=== PATIENT | female | born 1950 | race Caucasian/White ===

== ENCOUNTER 2017-08-21 15:49 | Inpatient (IN) | payer MEDICARE, MEDICAID ==
[~2017-08-21] VITALS: Ht 160 cm; Wt 48.6 kg
[~2017-08-21 15:49] MED LIST: FLUO-191 PO; OMEP40CA PO; XALA2.5OS OU; ZIPR60CA2 PO
[2017-08-21 16:29] LABS: BASOPHILS # (AUTO) 0.01 K/uL (0.00-0.20); BASOPHILS % (AUTO) 0.2 % (0.0-2.0); EOSINOPHILS % (AUTO) 0 % (1.0-6.0); HEMATOCRIT 35.3 % (36-46); HEMOGLOBIN 12.1 g/dL (12.0-16.0); LYMPHOCYTES # (AUTO) 0.8 K/uL (1.0-4.8); LYMPHOCYTES % (AUTO) 14.5 % (22.0-44.0); MEAN CORPUSCULAR HEMOGLOBIN 32.1 pg (26.0-34.0); MEAN CORPUSCULAR HGB CONC 34.3 G/dL (31.0-37.0); MEAN CORPUSCULAR VOLUME 94 fL (80-100); MONOCYTES # (AUTO) 0.3 K/uL (0.1-1.0); MONOCYTES % (AUTO) 6.3 % (2.0-9.0); NEUTROPHILS # (AUTO) 4.3 K/uL (1.8-7.7); PLATELET COUNT (AUTO) 178 K/uL (150-450); RED BLOOD CELL COUNT(AUTO) 3.77 MIL/uL (4.00-5.20); RED CELL DISTRIBUTION WIDTH 13.6 % (11.5-14.5); WHITE BLOOD COUNT (AUTO) 5.5 K/uL (4.5-11.0)
[2017-08-21 16:46] LABS: ANION GAP 11 mmol/L (8-16); CALCIUM, TOTAL 8.9 mg/dL (8.8-10.5); CARBON DIOXIDE 24 mmol/L (22-29); CHLORIDE 100 mmol/L (98-107); CREATININE 0.54 mg/dL (0.60-1.30); GLOMERULAR FILTR. RATE CALC > 60 mL/min (>60); POTASSIUM 4.1 mmol/L (3.5-5.1); SODIUM SERUM 135 mmol/L (136-145); UREA NITROGEN, BLOOD 19 mg/dL (7-18)
[2017-08-21 16:48] LABS: ALANINE AMINOTRANSFERASE 21 U/L (12-78); ALBUMIN 4.2 g/dL (3.4-5.0); ASPARTATE AMINOTRANSFERASE 25 U/L (15-37); BILIRUBIN,TOTAL 0.3 mg/dL (0.1-1.0); TOTAL PROTEIN, SERUM 7.6 g/dL (6.4-8.2)
[2017-08-21] MEDS ORDERED: HALOPERIDOL 5 MG TABLET PO PRN (17:15)
[2017-08-21 19:00] VITALS: BP 126/80
[2017-08-21] MEDS ORDERED: INFLUENZA VIRUS VACCINE QVS 2017-18 (3YR+)/PF 60 MCG/0.5 ML SYRINGE IM ONE (20:45)
[2017-08-21] MEDS: LORazepam 2 MG TABLET PO PRN (21:48)
[2017-08-22 07:00] VITALS: BP 140/71
[2017-08-22] MEDS ORDERED: ACETAMINOPHEN 325 MG TABLET PO PRN (08:45)
[2017-08-22] MEDS ORDERED: PETROLATUM,WHITE 71 GM JELLY TP PRN (08:45)
[2017-08-22] MEDS ORDERED: CloNIDine HCL 0.1 MG TABLET PO PRN (08:45)
[2017-08-22] MEDS ORDERED: MAGNESIUM HYDROXIDE SUSPENSION 30 ML UDCUP PO PRN (08:45)
[2017-08-22] MEDS ORDERED: LOPERAMIDE HCL 2 MG CAPSULE PO PRN (08:45)
[2017-08-22] MEDS ORDERED: ALBUTEROL SULFATE HFA 90 MCG/PUFF 8 GM INHALER IH PRN (08:45)
[2017-08-22] MEDS ORDERED: BENZOCAINE/MENTHOL LOZENGE MM PRN (08:45)
[2017-08-22] MEDS ORDERED: MAG HYDROX/AL HYDROX/SIMETH ES 30 ML SUSPENSION UDCUP PO PRN (08:45)
[2017-08-22] MEDS ORDERED: IBUPROFEN 600 MG TABLET PO PRN (08:45)
[2017-08-22] MEDS ORDERED: ONDANSETRON HCL 4 MG TABLET PO PRN (08:45)
[2017-08-22] MEDS ORDERED: BACITRACIN 28.4 GM OINTMENT TP PRN (08:45)
[2017-08-22 08:48] VITALS: BP 100/60
[2017-08-22 09:55] LABS: CHOL/HDL RATIO 2.1 (3.9-5.7)
[2017-08-22 16:25] VITALS: BP 118/74
[2017-08-23 00:49] VITALS: BP 116/77
[2017-08-23] MEDS: LEVOTHYROXINE SODIUM 25 MCG TABLET PO SCH (06:45)
[2017-08-23 08:00] VITALS: BP 122/76
[2017-08-23] MEDS: FLUoxetine HCL 20 MG CAPSULE PO SCH (08:09)
[2017-08-23] MEDS: ARIPiprazole 5 MG TABLET PO SCH (08:09)
[2017-08-23 16:06] VITALS: BP 140/86
[2017-08-23] MEDS: LORazepam 2 MG TABLET PO PRN (16:17)
[2017-08-23 17:17] VITALS: BP 135/84
[2017-08-24 00:07] VITALS: BP 112/78
[2017-08-24] MEDS: LEVOTHYROXINE SODIUM 25 MCG TABLET PO SCH (06:18)
[2017-08-24] MEDS: FLUoxetine HCL 20 MG CAPSULE PO SCH (08:44)
[2017-08-24] MEDS: ARIPiprazole 5 MG TABLET PO SCH (08:44)
[2017-08-24 09:03] VITALS: BP 104/77
[2017-08-24 16:20] VITALS: BP 119/65
[2017-08-25] MEDS: LEVOTHYROXINE SODIUM 25 MCG TABLET PO SCH (06:42)
[2017-08-25 06:46] VITALS: BP 142/72
[2017-08-25] MEDS: ARIPiprazole 5 MG TABLET PO SCH (08:33)
[2017-08-25] MEDS: FLUoxetine HCL 20 MG CAPSULE PO SCH (08:33)
[2017-08-25 08:39] VITALS: BP 103/63
[2017-08-25 16:20] VITALS: BP 117/71
[2017-08-25] MEDS: ZOLPIDEM TARTRATE 10 MG TABLET PO PRN (21:16)
[2017-08-26 01:51] VITALS: BP 117/64
[2017-08-26] MEDS: LEVOTHYROXINE SODIUM 25 MCG TABLET PO SCH (06:33)
[2017-08-26] MEDS: ARIPiprazole 5 MG TABLET PO SCH (08:14)
[2017-08-26] MEDS: FLUoxetine HCL 20 MG CAPSULE PO SCH (08:14)
[2017-08-26 09:12] VITALS: BP 113/51
[2017-08-26 14:00] VITALS: BP 138/75
[2017-08-26 16:05] VITALS: BP 129/83
[2017-08-26] MEDS: ZOLPIDEM TARTRATE 10 MG TABLET PO PRN (21:07)
[2017-08-27 02:55] VITALS: BP 130/80
[2017-08-27] MEDS: LEVOTHYROXINE SODIUM 25 MCG TABLET PO SCH (06:36)
[2017-08-27 08:39] VITALS: BP 116/67
[2017-08-27] MEDS: FLUoxetine HCL 20 MG CAPSULE PO SCH (08:41)
[2017-08-27] MEDS: ARIPiprazole 5 MG TABLET PO SCH (08:41)
[2017-08-27 16:07] VITALS: BP 117/71
[2017-08-27] MEDS: ZOLPIDEM TARTRATE 10 MG TABLET PO PRN (21:00)
[2017-08-28 00:59] VITALS: BP 120/67
[2017-08-28] MEDS: LEVOTHYROXINE SODIUM 25 MCG TABLET PO SCH (06:33)
[2017-08-28] MEDS: FLUoxetine HCL 20 MG CAPSULE PO SCH (08:06)
[2017-08-28] MEDS: ARIPiprazole 5 MG TABLET PO SCH (08:06)
[2017-08-28 08:38] VITALS: BP 107/66
[2017-08-28] MEDS ORDERED: ALBU8HFA IH (11:46)
[2017-08-28] MEDS ORDERED: ARIP5TAB8 PO (11:46)
[2017-08-28] MEDS ORDERED: LEVO25TA9 PO (11:46)
== END 2017-08-28 13:20 | disposition home or self-care (01) | DRG 881 ==
LOC: EMS 15:51 → B2X 17:08
PROVIDERS: ADMIT Psychiatry & Neurology Child & Adolescent Psychiatry; ATTEND Psychiatry & Neurology Child & Adolescent Psychiatry
DX: F32.9 Major depressive disorder, single episode, unspecified (principal); E44.1 Mild protein-calorie malnutrition; F25.0 Schizoaffective disorder, bipolar type; I10 Essential (primary) hypertension; E03.9 Hypothyroidism, unspecified; K21.9 Gastro-esophageal reflux disease without esophagitis; K59.00 Constipation, unspecified; M19.90 Unspecified osteoarthritis, unspecified site
CPT/HCPCS: 99285; G0480; J3535

== ENCOUNTER 2018-01-01 20:07 | Emergency (ER) | payer MEDICARE, OTHER ==
[~2018-01-01] VITALS: Ht 160 cm; Wt 48.0 kg
[~2018-01-01 20:07] MED LIST changes: +ALBU8HFA IH; +ARIP5TAB8 PO; +LEVO25TA9 PO; -OMEP40CA PO; -XALA2.5OS OU; -ZIPR60CA2 PO
[2018-01-01] MEDS ORDERED: ZIPR60CA2 PO (20:17)
[2018-01-01] MEDS ORDERED: PARO10TA89 PO (20:17)
[2018-01-01 21:30] LABS: BASOPHILS % (AUTO) 0.1 % (0.0-2.0); EOSINOPHILS % (AUTO) 0 % (1.0-6.0); HEMATOCRIT 34.8 % (36-46); HEMOGLOBIN 11.8 g/dL (12.0-16.0); LYMPHOCYTES # (AUTO) 1.1 K/uL (1.0-4.8); LYMPHOCYTES % (AUTO) 23.2 % (22.0-44.0); MEAN CORPUSCULAR HEMOGLOBIN 31.7 pg (26.0-34.0); MEAN CORPUSCULAR HGB CONC 33.8 G/dL (31.0-37.0); MEAN CORPUSCULAR VOLUME 94 fL (80-100); MONOCYTES # (AUTO) 0.5 K/uL (0.1-1.0); MONOCYTES % (AUTO) 10.1 % (2.0-9.0); NEUTROPHILS # (AUTO) 3.3 K/uL (1.8-7.7); NEUTROPHILS % (AUTO) 66.6 % (40.0-70.0); PLATELET COUNT (AUTO) 202 K/uL (150-450); RED BLOOD CELL COUNT(AUTO) 3.71 MIL/uL (4.00-5.20); RED CELL DISTRIBUTION WIDTH 13.4 % (11.5-14.5)
[2018-01-01 21:41] LABS: ANION GAP 7 mmol/L (8-16); CALCIUM, TOTAL 8.6 mg/dL (8.8-10.5); CARBON DIOXIDE 31 mmol/L (22-29); CHLORIDE 101 mmol/L (98-107); CREATININE 0.66 mg/dL (0.60-1.30); GLOMERULAR FILTR. RATE CALC > 60 mL/min (>60); GLUCOSE,RANDOM 76 mg/dL (70-110); POTASSIUM 4.1 mmol/L (3.5-5.1); SODIUM SERUM 139 mmol/L (136-145); UREA NITROGEN, BLOOD 22 mg/dL (7-18)
[2018-01-01 21:48] LABS: ALANINE AMINOTRANSFERASE 29 U/L (12-78); ALBUMIN 3.8 g/dL (3.4-5.0); ALKALINE PHOSPHATASE 86 U/L (46-116); ASPARTATE AMINOTRANSFERASE 27 U/L (15-37); BILIRUBIN,TOTAL 0.2 mg/dL (0.1-1.0); TOTAL PROTEIN, SERUM 7.1 g/dL (6.4-8.2)
[2018-01-01 22:40] VITALS: BP 136/71
[2018-01-01] MEDS: LORazepam 1 MG TABLET PO ONE ×2 (23:15→23:24)
== END 2018-01-01 23:35 | disposition home or self-care (01) ==
LOC: EMS 20:09
DX: F20.9 Schizophrenia, unspecified (principal); F32.9 Major depressive disorder, single episode, unspecified; E05.90 Thyrotoxicosis, unspecified without thyrotoxic crisis or storm
CPT/HCPCS: 36415; 80053; 85025; 99284; G0480

== ENCOUNTER 2018-11-24 20:19 | Inpatient (IN) | payer MEDICARE, MEDICAID ==
[~2018-11-24] VITALS: Ht 152.4 cm; Wt 54.0 kg
[~2018-11-24 20:19] MED LIST changes: -FLUO-191 PO; +PARO10TA89 PO; +ZIPR60CA2 PO
[2018-11-24 21:18] LABS: AMPHET/METH SCREEN,URINE NEGATIVE (NEGATIVE); BARBITURATE SCREEN, URINE NEGATIVE (NEGATIVE); BENZODIAZEPINES SCREEN,URINE NEGATIVE (NEGATIVE); CANNABINOID SCREEN,URINE NEGATIVE (NEGATIVE); COCAINE SCREEN,URINE NEGATIVE (NEGATIVE); METHADONE SCREEN, URINE NEGATIVE (NEGATIVE); OPIATE SCREEN,URINE NEGATIVE (NEGATIVE)
[2018-11-24 21:26] LABS: PHENCYCLIDINE SCREEN,URINE NEGATIVE (NEGATIVE)
[2018-11-24 21:29] LABS: BASOPHILS % (AUTO) 0.3 % (0.0-2.0); EOSINOPHILS % (AUTO) 0 % (1.0-6.0); HEMATOCRIT 33.4 % (36-46); HEMOGLOBIN 11.7 g/dL (12.0-16.0); LYMPHOCYTES # (AUTO) 1.2 K/uL (1.0-4.8); LYMPHOCYTES % (AUTO) 28.7 % (22.0-44.0); MEAN CORPUSCULAR HEMOGLOBIN 32.8 pg (26.0-34.0); MEAN CORPUSCULAR HGB CONC 35.1 G/dL (31.0-37.0); MEAN CORPUSCULAR VOLUME 94 fL (80-100); MONOCYTES # (AUTO) 0.5 K/uL (0.1-1.0); MONOCYTES % (AUTO) 11.3 % (2.0-9.0); NEUTROPHILS # (AUTO) 2.4 K/uL (1.8-7.7); NEUTROPHILS % (AUTO) 59.7 % (40.0-70.0); PLATELET COUNT (AUTO) 189 K/uL (150-450); RED BLOOD CELL COUNT(AUTO) 3.57 MIL/uL (4.00-5.20); RED CELL DISTRIBUTION WIDTH 13.3 % (11.5-14.5)
[2018-11-24 21:36] LABS: ANION GAP 9 mmol/L (8-16); CALCIUM, TOTAL 8.6 mg/dL (8.8-10.5); CARBON DIOXIDE 28 mmol/L (22-29); CHLORIDE 99 mmol/L (98-107); GLOMERULAR FILTR. RATE CALC > 60 mL/min (>60); GLUCOSE,RANDOM 94 mg/dL (70-110); POTASSIUM 3.7 mmol/L (3.5-5.1); SODIUM SERUM 136 mmol/L (136-145); UREA NITROGEN, BLOOD 11 mg/dL (7-18)
[2018-11-24 21:41] LABS: ALANINE AMINOTRANSFERASE 19 U/L (12-78); ALBUMIN 3.3 g/dL (3.4-5.0); ALKALINE PHOSPHATASE 59 U/L (46-116); ASPARTATE AMINOTRANSFERASE 19 U/L (15-37); BILIRUBIN,TOTAL 0.2 mg/dL (0.1-1.0); TOTAL PROTEIN, SERUM 6.5 g/dL (6.4-8.2)
[2018-11-24] MEDS ORDERED: ZOLPIDEM TARTRATE 5 MG TABLET PO PRN (22:00)
[2018-11-25 00:25] VITALS: BP 117/63
[2018-11-25] MEDS: HALOPERIDOL 5 MG TABLET PO PRN (03:53)
[2018-11-25] MEDS ORDERED: MAGNESIUM HYDROXIDE SUSPENSION 30 ML UDCUP PO PRN (07:15)
[2018-11-25] MEDS ORDERED: ALBUTEROL SULFATE HFA 90 MCG/PUFF 8 GM INHALER IH PRN (07:15)
[2018-11-25] MEDS ORDERED: ONDANSETRON HCL 4 MG TABLET PO PRN (07:15)
[2018-11-25] MEDS ORDERED: MAG HYDROX/AL HYDROX/SIMETH ES 30 ML SUSPENSION UDCUP PO PRN (07:15)
[2018-11-25] MEDS ORDERED: LOPERAMIDE HCL 2 MG CAPSULE PO PRN (07:15)
[2018-11-25] MEDS ORDERED: GuaiFENesin/D-METHORPHAN [SUGAR-FREE] 200-20MG/10 ML SYRUP UDCUP PO PRN (07:15)
[2018-11-25] MEDS ORDERED: DOCUSATE SODIUM 100 MG CAPSULE PO PRN (07:15)
[2018-11-25] MEDS ORDERED: CloNIDine HCL 0.1 MG TABLET PO PRN (07:15)
[2018-11-25] MEDS ORDERED: PETROLATUM,WHITE 71 GM JELLY TP PRN (07:15)
[2018-11-25 09:28] VITALS: BP 107/71
[2018-11-25] MEDS ORDERED: DENTURE ADHESIVE 68 GM CREAM DT PRN (13:30)
[2018-11-25 16:15] VITALS: BP 103/78
[2018-11-25] MEDS: ZIPRASIDONE HCL 60 MG CAPSULE PO SCH (17:31)
[2018-11-25] MEDS: LORazepam 1 MG TABLET PO PRN (20:25)
[2018-11-26 02:15] VITALS: BP 104/61
[2018-11-26 06:17] LABS: HEMOGLOBIN A1C 5.4 % (4.5-6.2)
[2018-11-26 06:40] LABS: CHOL/HDL RATIO 2.2 (3.9-5.7); THYROID STIMULATING HORMONE 4.65 uIU/mL (0.36-3.74)
[2018-11-26] MEDS: LEVOTHYROXINE SODIUM 25 MCG TABLET PO SCH (06:41)
[2018-11-26] MEDS: ZIPRASIDONE HCL 60 MG CAPSULE PO SCH (06:41)
[2018-11-26] MEDS: PARoxetine HCL 10 MG TABLET PO SCH (07:57)
[2018-11-26 08:57] VITALS: BP 98/65
[2018-11-26] MEDS: IBUPROFEN 400 MG TABLET PO PRN (10:01)
[2018-11-26 16:42] VITALS: BP 119/52
[2018-11-26] MEDS ORDERED: ZIPRASIDONE HCL 80 MG CAPSULE PO SCH (17:30)
[2018-11-26] MEDS: ZIPRASIDONE HCL 80 MG CAPSULE PO SCH (17:47)
[2018-11-26 18:53] VITALS: BP 123/60
[2018-11-26] MEDS: ACETAMINOPHEN 325 MG TABLET PO PRN (18:53)
[2018-11-27 01:47] VITALS: BP 99/63
[2018-11-27] MEDS: ZIPRASIDONE HCL 80 MG CAPSULE PO SCH ×2 (06:51→16:48)
[2018-11-27] MEDS: LEVOTHYROXINE SODIUM 25 MCG TABLET PO SCH (06:51)
[2018-11-27 08:05] VITALS: BP 132/86
[2018-11-27] MEDS: PARoxetine HCL 10 MG TABLET PO SCH (08:24)
[2018-11-27 16:00] VITALS: BP 129/61
[2018-11-28 06:02] LABS: BASOPHILS % (AUTO) 0.2 % (0.0-2.0); EOSINOPHILS % (AUTO) 0 % (1.0-6.0); HEMATOCRIT 34.9 % (36-46); LYMPHOCYTES # (AUTO) 0.8 K/uL (1.0-4.8); LYMPHOCYTES % (AUTO) 18.4 % (22.0-44.0); MEAN CORPUSCULAR HEMOGLOBIN 32.7 pg (26.0-34.0); MEAN CORPUSCULAR HGB CONC 34.4 G/dL (31.0-37.0); MEAN CORPUSCULAR VOLUME 95 fL (80-100); MONOCYTES # (AUTO) 0.6 K/uL (0.1-1.0); MONOCYTES % (AUTO) 13.2 % (2.0-9.0); NEUTROPHILS # (AUTO) 3.1 K/uL (1.8-7.7); NEUTROPHILS % (AUTO) 68.2 % (40.0-70.0); PLATELET COUNT (AUTO) 170 K/uL (150-450); RED BLOOD CELL COUNT(AUTO) 3.67 MIL/uL (4.00-5.20); RED CELL DISTRIBUTION WIDTH 13.6 % (11.5-14.5)
[2018-11-28] MEDS: ZIPRASIDONE HCL 80 MG CAPSULE PO SCH ×2 (07:03→16:21)
[2018-11-28] MEDS: LEVOTHYROXINE SODIUM 25 MCG TABLET PO SCH (07:03)
[2018-11-28 08:05] VITALS: BP 127/68
[2018-11-28] MEDS: PARoxetine HCL 10 MG TABLET PO SCH (11:03)
[2018-11-28 12:24] VITALS: BP 124/70
[2018-11-28] MEDS: ACETAMINOPHEN 325 MG TABLET PO PRN (12:24)
[2018-11-28 13:24] VITALS: BP 126/72
[2018-11-28 17:22] VITALS: BP 101/66
[2018-11-29 01:49] VITALS: BP 148/70
[2018-11-29] MEDS: ZIPRASIDONE HCL 80 MG CAPSULE PO SCH ×3 (07:09→18:00)
[2018-11-29] MEDS: LEVOTHYROXINE SODIUM 25 MCG TABLET PO SCH (07:09)
[2018-11-29] MEDS: PARoxetine HCL 10 MG TABLET PO SCH (08:50)
[2018-11-29 08:59] VITALS: BP 94/58
[2018-11-29 16:53] VITALS: BP 95/58
[2018-11-30] MEDS: LEVOTHYROXINE SODIUM 25 MCG TABLET PO SCH (07:00)
[2018-11-30] MEDS: PARoxetine HCL 10 MG TABLET PO SCH (08:03)
[2018-11-30 09:08] VITALS: BP 135/71
[2018-11-30] MEDS: ZIPRASIDONE HCL 80 MG CAPSULE PO SCH (17:00)
[2018-12-01] MEDS: LORazepam 1 MG TABLET PO PRN ×2 (00:14→08:20)
[2018-12-01] MEDS: HALOPERIDOL 5 MG TABLET PO PRN (00:14)
[2018-12-01] MEDS: ZIPRASIDONE HCL 80 MG CAPSULE PO SCH ×2 (06:59→16:42)
[2018-12-01] MEDS: LEVOTHYROXINE SODIUM 25 MCG TABLET PO SCH (07:00)
[2018-12-01 08:05] VITALS: BP 110/74
[2018-12-01] MEDS: PARoxetine HCL 10 MG TABLET PO SCH (08:20)
[2018-12-01 19:14] VITALS: BP 99/59
[2018-12-02 01:43] VITALS: BP 104/68
[2018-12-02] MEDS: LEVOTHYROXINE SODIUM 25 MCG TABLET PO SCH (07:24)
[2018-12-02] MEDS: ZIPRASIDONE HCL 80 MG CAPSULE PO SCH ×2 (07:24→16:11)
[2018-12-02 08:05] VITALS: BP 140/71
[2018-12-02] MEDS: PARoxetine HCL 10 MG TABLET PO SCH (09:15)
[2018-12-02] MEDS: HALOPERIDOL 5 MG TABLET PO PRN (16:12)
[2018-12-02] MEDS: LORazepam 1 MG TABLET PO PRN (16:26)
[2018-12-02 18:24] VITALS: BP 123/70
[2018-12-03 01:02] VITALS: BP 113/68
[2018-12-03] MEDS: ZIPRASIDONE HCL 80 MG CAPSULE PO SCH ×2 (07:02→16:29)
[2018-12-03] MEDS: LEVOTHYROXINE SODIUM 25 MCG TABLET PO SCH (07:02)
[2018-12-03 08:05] VITALS: BP 141/69
[2018-12-03] MEDS: PARoxetine HCL 10 MG TABLET PO SCH (08:07)
[2018-12-03 16:36] VITALS: BP 115/71
[2018-12-03] MEDS: LORazepam 1 MG TABLET PO PRN (21:55)
[2018-12-04 04:04] VITALS: BP 141/97
[2018-12-04] MEDS: IBUPROFEN 400 MG TABLET PO PRN (04:06)
[2018-12-04] MEDS: LEVOTHYROXINE SODIUM 25 MCG TABLET PO SCH (06:57)
[2018-12-04] MEDS: ZIPRASIDONE HCL 80 MG CAPSULE PO SCH ×2 (06:57→17:52)
[2018-12-04] MEDS: PARoxetine HCL 10 MG TABLET PO SCH (08:05)
[2018-12-04 09:04] VITALS: BP 121/76
[2018-12-04] MEDS: ACETAMINOPHEN 325 MG TABLET PO PRN (09:51)
[2018-12-04 09:52] VITALS: BP 106/67
[2018-12-04 16:48] VITALS: BP 131/81
[2018-12-05 03:11] VITALS: BP 149/78
[2018-12-05] MEDS: ACETAMINOPHEN 325 MG TABLET PO PRN (03:13)
[2018-12-05] MEDS: LEVOTHYROXINE SODIUM 25 MCG TABLET PO SCH (06:48)
[2018-12-05] MEDS: ZIPRASIDONE HCL 80 MG CAPSULE PO SCH ×2 (06:48→17:47)
[2018-12-05] MEDS: PARoxetine HCL 10 MG TABLET PO SCH (08:53)
[2018-12-05 10:22] VITALS: BP 121/62
[2018-12-05 16:17] VITALS: BP 103/62
[2018-12-06 00:58] VITALS: BP 146/98
[2018-12-06 06:15] LABS: HEMATOCRIT 34.5 % (36-46); HEMOGLOBIN 11.7 g/dL (12.0-16.0); MEAN CORPUSCULAR HEMOGLOBIN 31.9 pg (26.0-34.0); MEAN CORPUSCULAR VOLUME 94 fL (80-100); PLATELET COUNT (AUTO) 239 K/uL (150-450); RED BLOOD CELL COUNT(AUTO) 3.68 MIL/uL (4.00-5.20); RED CELL DISTRIBUTION WIDTH 13.7 % (11.5-14.5)
[2018-12-06 06:39] LABS: ALANINE AMINOTRANSFERASE 22 U/L (12-78); ALBUMIN 3.6 g/dL (3.4-5.0); ALKALINE PHOSPHATASE 69 U/L (46-116); ANION GAP 4 mmol/L (8-16); ASPARTATE AMINOTRANSFERASE 23 U/L (15-37); BILIRUBIN,TOTAL 0.2 mg/dL (0.1-1.0); CALCIUM, TOTAL 8.6 mg/dL (8.8-10.5); CARBON DIOXIDE 31 mmol/L (22-29); CHLORIDE 101 mmol/L (98-107); CREATININE 0.39 mg/dL (0.60-1.30); GLOMERULAR FILTR. RATE CALC > 60 mL/min (>60); GLUCOSE,RANDOM 82 mg/dL (70-110); POTASSIUM 4.9 mmol/L (3.5-5.1); SODIUM SERUM 136 mmol/L (136-145); TOTAL PROTEIN, SERUM 6.7 g/dL (6.4-8.2); UREA NITROGEN, BLOOD 16 mg/dL (7-18)
[2018-12-06] MEDS: LEVOTHYROXINE SODIUM 25 MCG TABLET PO SCH (06:54)
[2018-12-06] MEDS: ZIPRASIDONE HCL 80 MG CAPSULE PO SCH ×2 (06:54→17:57)
[2018-12-06 07:15] LABS: BAND NEUTROPHILS % (MANUAL) 0 % (0-5)
[2018-12-06 07:27] LABS: LYMPHOCYTES % (MANUAL) 31 % (22-44); MONOCYTES % (MANUAL) 10 % (2-9); SEGMENTED NEUTROPHILS % 59 % (40-70)
[2018-12-06 08:00] VITALS: BP 118/79
[2018-12-06] MEDS: PARoxetine HCL 10 MG TABLET PO SCH (08:28)
[2018-12-06 17:00] VITALS: BP 127/77
[2018-12-06] MEDS: HALOPERIDOL 5 MG TABLET PO PRN (23:59)
[2018-12-07] MEDS: LEVOTHYROXINE SODIUM 25 MCG TABLET PO SCH (06:31)
[2018-12-07] MEDS: ZIPRASIDONE HCL 80 MG CAPSULE PO SCH (06:31)
[2018-12-07 08:45] VITALS: BP 133/89
[2018-12-07] MEDS: PARoxetine HCL 10 MG TABLET PO SCH (09:52)
[2018-12-07] MEDS: HALOPERIDOL 5 MG TABLET PO PRN (09:52)
[2018-12-07] MEDS ORDERED: ZIPR80CA2 PO (09:55)
== END 2018-12-07 15:20 | disposition home or self-care (01) | DRG 885 ==
LOC: EMS 20:20 → 3EX 22:28
PROVIDERS: ADMIT Psychiatry & Neurology Psychiatry; ATTEND Psychiatry & Neurology Psychiatry
DX: F25.0 Schizoaffective disorder, bipolar type (principal); D64.9 Anemia, unspecified; D72.819 Decreased white blood cell count, unspecified; E03.9 Hypothyroidism, unspecified; H40.9 Unspecified glaucoma; I10 Essential (primary) hypertension; J44.9 Chronic obstructive pulmonary disease, unspecified; K21.9 Gastro-esophageal reflux disease without esophagitis; M19.90 Unspecified osteoarthritis, unspecified site; R45.850 Homicidal ideations; Z91.19 Patient's noncompliance with other medical treatment and regimen
CPT/HCPCS: 83036; 84439; 84443; G0378; G0480; Q0162

== ENCOUNTER 2021-02-01 13:45 | Emergency (ER) | payer MEDICARE, OTHER ==
[~2021-02-01] VITALS: Ht 157.5 cm; Wt 54.5 kg
[~2021-02-01 13:45] MED LIST changes: -ALBU8HFA IH; -ARIP5TAB8 PO; -ZIPR60CA2 PO; +ZIPR80CA2 PO
[2021-02-01] MEDS ORDERED: OMEP20 PO (13:53)
[2021-02-01] MEDS ORDERED: ZIPR40CA2 PO (13:53)
[2021-02-01 15:37] LABS: BASOPHILS % (AUTO) 0.1 % (0.0-2.0); EOSINOPHILS % (AUTO) 0 % (1.0-6.0); HEMATOCRIT 34.7 % (36-46); HEMOGLOBIN 11.6 g/dL (12.0-16.0); LYMPHOCYTES # (AUTO) 0.5 K/uL (1.0-4.8); LYMPHOCYTES % (AUTO) 9.8 % (22.0-44.0); MEAN CORPUSCULAR HEMOGLOBIN 30.4 pg (26.0-34.0); MEAN CORPUSCULAR HGB CONC 33.4 G/dL (31.0-37.0); MEAN CORPUSCULAR VOLUME 91 fL (80-100); MONOCYTES # (AUTO) 0.4 K/uL (0.1-1.0); MONOCYTES % (AUTO) 8.1 % (2.0-9.0); NEUTROPHILS # (AUTO) 4.5 K/uL (1.8-7.7); PLATELET COUNT (AUTO) 215 K/uL (150-450); RED BLOOD CELL COUNT(AUTO) 3.82 MIL/uL (4.00-5.20); RED CELL DISTRIBUTION WIDTH 14.1 % (11.5-14.5)
[2021-02-01 15:45] LABS: ANION GAP 10 mmol/L (8-16); CALCIUM, TOTAL 8.8 mg/dL (8.8-10.5); CARBON DIOXIDE 28 mmol/L (22-29); CHLORIDE 103 mmol/L (98-107); CREATININE 0.45 mg/dL (0.60-1.30); GLOMERULAR FILTR. RATE CALC > 60 mL/min (>60); GLUCOSE,RANDOM 89 mg/dL (70-110); POTASSIUM 3.5 mmol/L (3.5-5.1); SODIUM SERUM 141 mmol/L (136-145); UREA NITROGEN, BLOOD 13 mg/dL (7-18)
[2021-02-01 15:51] LABS: ALANINE AMINOTRANSFERASE 15 U/L (12-78); ALBUMIN 3.5 g/dL (3.4-5.0); ALKALINE PHOSPHATASE 127 U/L (46-116); ASPARTATE AMINOTRANSFERASE 17 U/L (15-37); BILIRUBIN,TOTAL 0.2 mg/dL (0.1-1.0); TOTAL PROTEIN, SERUM 7.3 g/dL (6.4-8.2)
[2021-02-01 15:58] LABS: APPEARANCE,URINE CLEAR (CLEAR); BILIRUBIN,URINE NEGATIVE (NEGATIVE); GLUCOSE, URINE (UA) NEGATIVE (NEGATIVE); KETONES,URINE NEGATIVE (NEGATIVE); LEUKOCYTE ESTERASE ,URINE NEGATIVE (NEGATIVE); NITRATE,URINE NEGATIVE (NEGATIVE); OCCULT BLOOD,URINE SMALL (NEGATIVE); PH,URINE 6.5 (5.0-8.0); PROTEIN,URINE NEGATIVE (NEGATIVE)
[2021-02-01 16:11] LABS: AMPHET/METH SCREEN,URINE NEGATIVE (NEGATIVE); BARBITURATE SCREEN, URINE NEGATIVE (NEGATIVE); BENZODIAZEPINES SCREEN,URINE NEGATIVE (NEGATIVE); CANNABINOID SCREEN,URINE NEGATIVE (NEGATIVE); COCAINE SCREEN,URINE NEGATIVE (NEGATIVE); METHADONE SCREEN, URINE NEGATIVE (NEGATIVE); OPIATE SCREEN,URINE NEGATIVE (NEGATIVE)
[2021-02-01 16:12] LABS: BACTERIA,URINE None Seen /HPF (None Seen); SQUAMOUS EPITHELIAL CELL,UR None Seen /LPF (None Seen); WBC,URINE 0-2 /HPF (0-5)
[2021-02-01 16:14] LABS: PHENCYCLIDINE SCREEN,URINE NEGATIVE (NEGATIVE)
[2021-02-01 17:16] VITALS: BP 134/70
== END 2021-02-01 18:30 | disposition home or self-care (01) ==
LOC: EMS 13:47
DX: F20.9 Schizophrenia, unspecified (principal); F32.9 Major depressive disorder, single episode, unspecified; K21.9 Gastro-esophageal reflux disease without esophagitis
CPT/HCPCS: 36415; 80053; 80307; 81001; 85025; 99284; G0480